=== PATIENT | male | born 1980 | race Caucasian/White ===

== ENCOUNTER 2016-11-25 21:08 | Emergency (ER) | payer MEDICAID, OTHER ==
[~2016-11-25] VITALS: Ht 180.3 cm; Wt 76.0 kg
[2016-11-25 21:27] VITALS: Ht 180.3 cm; Wt 76.0 kg
[2016-11-26] MEDS ORDERED: SODI126M NASAL (01:22)
--- NOTE | 2016-11-26 03:28 | ERD ---
ER Documentation Chief Complaint Date/Time DATE: 11/26/16 TIME: 03:24 Chief Complaint right ear pain, cough, congestion x 3 days HPI 36-year-old male complaining of right ear pain 3 days. Pain is intermittent. He also reports cough and nasal congestion for the last 3 days as well. Denies fever or chills. Denies hearing loss or discharge from the ear. Denies shortness of breath. Denies headache or neck pain. Denies jaw pain. ROS All systems reviewed and are negative except as per history of present illness. 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 Allergies Allergies: Coded Allergies: No Known Allergy (Unverified , 01/13/14) PMhx/Soc Medical and Surgical Hx: pt denies Medical Hx, pt denies Surgical Hx Hx Alcohol Use: No Hx Substance Use: No Hx Tobacco Use: No Smoking Status: Never smoker Physical Exam Vitals Vital Signs Date Time Temp Pulse Resp B/P Pulse Ox O2 Delivery O2 Flow Rate FiO2 11/25/16 21:27 97.7 72 18 121/80 99 Physical Exam General: Well-developed, well-nourished, conscious and coherent, in no distress Skin: Warm and dry without rash, good texture and turgor Head: Normocephalic without evidence of trauma Eyes: Sclera and conjunctivae normal; pupils equal, round, and reactive to light; extraocular movements are intact Ears: Canals are patent. Tympanic membranes are clear. Serous fluid is noted behind the tympanic membrane bilaterally. Nose/Face: Is a mucosa erythematous and swollen. Mouth/throat: Mucous membranes are moist. Posterior pharynx clear without erythema or exudates Neck: Supple without meningismus or adenopathy. Carotids are equal. Trachea midline. No bruits or JVD Chest: Normal AP diameter. Good expansion without retractions. Nontender. Lungs are clear to auscultate bilaterally with good tidal volume Heart: Regular rate and rhythm. No murmur, rub, or gallops heard Extremities: Full range of motion. Good strength bilaterally. No clubbing, cyanosis, or edema. Peripheral pulses are intact. Sensation intact Neuro: Alert and oriented 4, GCS 15. Cranial nerves grossly intact. Motor and sensory exams nonfocal. Moves all extremities. Speech clear. Gait normal Procedures/MDM Well-appearing 36-year-old male complaining of right ear pain, cough, and nasal congestion 3 days. Patient is afebrile, in no respiratory distress. Lungs are clear to auscultate. I doubt that patient has pneumonia or bronchitis. Likely patient's symptoms are result of viral upper respiratory infection. Patient's ear pain is likely from serous otitis media, secondary to nasal congestion. No sign of acute infectious otitis media. Patient appears well, stable for discharge and outpatient management. Medical decision making shared with patient and family. Education provided to patient and family. Patient and family expressed understanding of the plan. Medications on discharge: Saline nasal spray. Follow-up: Primary care provider in 2-3 days or return to ED if worse. Disclaimer: Inadvertent spelling and grammatical errors are likely due to EHR/ dictation software use and do not reflect on the overall quality of patient care. Also, please note that the electronic time recorded on this note does not necessarily reflect the actual time of the patient encounter. Departure Diagnosis: Primary Impression: Acute serous otitis media Additional Impression: URI (upper respiratory infection) Condition: Stable Patient Instructions: Adult Self-Care for Colds, Serous Otitis Media Without Infection [Child] Referrals: [facility] YOU HAVE RECEIVED A MEDICAL SCREENING EXAM AND THE RESULTS INDICATE THAT YOU DO NOT HAVE A CONDITION THAT REQUIRES URGENT TREATMENT IN THE EMERGENCY DEPARTMENT. FURTHER EVALUATION AND TREATMENT OF YOUR CONDITION CAN WAIT UNTIL YOU ARE SEEN IN YOUR DOCTORS OFFICE WITHIN THE NEXT 1-2 DAYS. IT IS YOUR RESPONSIBILITY TO MAKE AN APPOINTMENT FOR FOLOW-UP CARE. IF YOU HAVE A PRIMARY DOCTOR --you should call your primary doctor and schedule an appointment IF YOU DO NOT HAVE A PRIMARY DOCTOR YOU CAN CALL OUR PHYSICIAN REFERRAL HOTLINE AT IF YOU CAN NOT AFFORD TO SEE A PHYSICIAN YOU CAN CHOSE FROM THE FOLLOWING [facility] [id number] [facility] [address] [facility] [address] [facility] [address] [facility] [address] [facility]. [facility] [address] Additional Instructions: Call your primary care doctor TOMORROW for an appointment during the next 2-3 days.See the doctor sooner or return here if your condition worsens before your appointment time. FRANSISCO CURRAN. SAW Nov 26, 2016 03:28
== END 2016-11-26 01:53 | disposition home or self-care (01) ==
LOC: FTE 21:08
DX: H65.01 Acute serous otitis media, right ear (principal); J06.9 Acute upper respiratory infection, unspecified
CPT/HCPCS: 99283

== ENCOUNTER 2017-08-18 15:12 | Emergency (ER) | END 2017-08-18 17:40 | disposition left against medical advice (07) ==

== ENCOUNTER 2017-08-28 13:00 | Emergency (ER) | END 2017-08-28 15:42 | disposition home or self-care (01) ==